=== PATIENT | female | born 1945 | race Caucasian/White ===

== ENCOUNTER 2023-11-12 07:44 | Emergency (ER) | payer MEDICARE, BC, SELFPAY ==
[2023-11-12 07:49] VITALS: BP 135/64
--- NOTE | 2023-11-12 08:19 | ED.GENMED ---
History of Present Illness
General
Chief Complaint: Chest Pain
Source: patient and spouse
Exam Limitations: none
Time Seen by Provider: 11/12/23 08:16
Travel History
Have you had any contact with someone who has COVID-19?: No
Do you have any symptoms of coronavirus? Fever > 100 degrees, chills, cough, shortness of breath, sore throat, loss of taste or smell, muscle aches, or headache?: No
History of Present Illness
History of Present Illness:
78-year-old female relatively sudden onset of left anterior chest pain just below her breast at about 3 AM. Lasted about 4 hours. Currently gone. She noted it was worse when lying down. No shortness of breath although some nausea. No
diaphoresis. No radiation to the arm neck or back. No shearing pain history of similar episodes. She states that she currently is at baseline and symptoms have resolved. She has no history of coronary disease. She does have some history of
vascular disease however
Past History
Past History
ED Past Medical History: Asthma, GERD and HTN
ED Past Surgical History: Other
Social History
Tobacco: Non-smoker
Alcohol: None
Review of Systems
Review of Systems
All Other Systems: Not applicable
Constitutional: Denies fever
Respiratory: Reports no symptoms; Denies cough
ABD/GI: Reports no symptoms
Phy Exam
Physical Exam
Physical Exam:
GENERAL: Alert and oriented in no apparent distress. Patient did note symptoms recurred somewhat with deep breathing on the lung exam
EYE: Orbits normal.
NECK: Supple, no thyroid palpable
ENT: Pharynx without erythema
CARDIAC: Regular rate and rhythm without any obvious murmurs.
LUNGS: Clear breath sounds,normal
ABDOMEN: Soft, without focal tenderness or distention
NEUROLOGICAL: Alert and oriented , grossly non-focal
SKIN: Warm and dry, no rash or lesion, no discoloration, skin intact.
MUSCULOSKELETAL: No edema,no deformity.Good color. Calves are normal. No cord. No erythema. No tenderness.
PSYCH: Normal and appropriate interaction.
Scores
Heart Score for Chest Pain Patients
STEMI patient?: No
History: Slightly or Non-Suspicious
ECG: Normal
Age: >/= 65 years
Risk Factors: 1 or 2 Risk Factors
Troponin: </= Normal Limit
Heart Score for Chest Pain Patients: 3
Heart Score Risk: 2.5% MACE over next 6 weeks
Course
Orders/Labs/Results
Orders:
Orders
11/12/23 07:52
Electrocardiogram (*1) Urgent
Reason for Study: Chest Pain
11/12/23 07:53
EKG- Treatment ONCE
11/12/23 08:33
Cardiac Monitoring- Treatment ONCE
IV Insert/Care/Rem.- Treatment PRN
11/12/23 09:09
Basic Metabolic Panel Urgent
Complete Blood Count/With Diff Urgent
D-Dimer Urgent
Troponin I Urgent
11/12/23 10:00
CT Chest Pe Study Urgent
Comment:
Reason For Exam: Chest pain/pleuritic in nature. Positive dimer
11/12/23 11:39
US Periph Venous LOWER Ext Dima Urgent
Comment:
Reason For Exam: Positive D-dimer. Chest pain.
11/12/23 13:35
Electrocardiogram (*1) Stat
Reason for Study: Other
Other Reason for Exam: chest pain
EKG- Treatment ONCE
11/12/23 14:11
Troponin I Urgent
11/12/23 14:46
Doxycycline [Vibramycin] 100 mg PO NOW STA
Abnormal Lab Results
11/12/23
09:09
WBC 12.9 H 10^3/uL
(4.8-10.8)
RBC 4.18 L 10^6/uL
(4.20-5.40)
Absolute Neuts (auto) 10.6 H 10^3/uL
(1.4-6.5)
Absolute Lymphs (auto) 1.0 L 10^3/uL
(1.2-3.4)
Absolute Monos (auto) 1.0 H 10^3/uL
(0.1-0.6)
Neutrophils % 82.0 H %
(42.2-75.2)
Lymphocytes % 7.9 L %
(20.5-51.1)
D-Dimer 6.38 H ug/mlFEU
(0.00-0.50)
Carbon Dioxide 33 H mmol/L
(22-30)
BUN 20 H mg/dl
(7-17)
Creatinine 0.5 L mg/dL
(0.6-1.0)
Glucose 106 H mg/dl
(70-99)
11/12/23 09:09
11/12/23 09:09
Vital Signs
Initial and Last Documented VS:
Initial Vital Signs
Temp Pulse Resp BP Pulse Ox
98.4 F 65 20 135/64 97
11/12/23 07:49 11/12/23 07:49 11/12/23 07:49 11/12/23 07:49 11/12/23 07:49
Last Documented Vital Signs
Temp Pulse Resp BP Pulse Ox
98.4 F 59 16 147/61 94
11/12/23 07:49 11/12/23 14:30 11/12/23 14:30 11/12/23 14:08 11/12/23 14:30
MDM/Problems Addressed
Differential Diagnosis Includes:
Low suspicion for cardiac etiology. Atypical cardiac like pain. EKG is stable. Will do troponin and repeat testing. Would be slightly more suspicious for pulmonary emboli although although no risk factors. Feel a D-dimer is a reasonable screen.
Would like to reasonably try to avoid a CAT scan as she has had multiple CTs in the past for chronic lung issues. Patient is comfortable with this approach
*Radiology
Radiology exam reviewed: radiology read reviewed (Negative ultrasounds. CT scan show multifocal pneumonia. Seen on previous scans)
*Pulse Oximetry
Patient hypoxic: no
*EKG
Interpreted by ED Provider?: Yes
Interpretation: normal
Comparison EKG: no comparison EKG present
Heart Rate: 57
Rate: bradycardiac
Rhythm: sinus
Vaughn: normal axis
Interval: normal interval
QRS Pattern: normal QRS
Ischemia: no ischemia
*Critical Care Note
Total Time (30-74mins, 75-104mins- exclusive of procedures): Not Applicable
Update Note
Update Note:
Repeat EKG stable. Patient is remained stable. Discussed CT findings with patient's social work nurse. No indication for admission given her nontoxic appearance, good pulse ox. We will start doxycycline and have her follow-up.
ED Attending Note
-
Portions of this chart may have been created with voice recognition software.� Occasional wrong word or��sound alike� substitutions may have occurred due to the inherent limitations of voice recognition software.
Discharge Plan
Departure
Patient Disposition: Home (Routine Discharge)
Date of Disposition: 11/12/23
Time of Disposition: 14:44
Patient with high blood pressure during this ER visit?: Yes
Discharge Problem:
Pleuritic chest pain, Multifocal inflammatory changes lung
Instructions: Chest Pain CBC Follow Up, BLOOD PRESSURE
Prescriptions:
New
doxycycline hyclate 100 mg capsule
100 mg PO BID 10 Days Qty: 20 0RF
No Action
doxycycline hyclate 100 MG capsule
100 mg PO Q12 Qty: 13 0RF
Referrals:
Bo Barillas MD [Family Provider] - Follow up in 2-3 days
Activity Restrictions/Additional Instructions:
Call your social work nurse for close follow-up
Return with increasing chest pain shortness of breath fever or any other concerning symptoms
Interventions
Interventions:
*Risk Screen - Suicide Last Done: 11/12/23 07:49
*General Assessment Last Done: 11/12/23 07:49
*Neglect/Abuse Screening Last Done: 11/12/23 07:49
ED- Cardiac Assessment Last Done: 11/12/23 09:24
Discharge Date and Time
Print Language: [place]
[2023-11-12 08:57] VITALS: BMI 19.1
[2023-11-12 09:11] VITALS: BP 124/51
[2023-11-12 09:25] LABS: % Basophils 0.4 % (0-2); % Eosinophils 1.8 % (0-6); % Immature Granulocytes 0.2 % (0-0.5); % Lymphocytes 7.9 % (20.5-51.1); % Monocytes 7.7 % (1.7-9.3); Absolute Basophils 0.1 10^3/uL (0-0.2); Absolute Eosinophils 0.2 10^3/uL (0-0.7); Absolute Neutrophils 10.6 10^3/uL (1.4-6.5); Hematocrit 37.5 % (37.0-47.0); Hemoglobin 12.6 g/dL (12.0-16.0); Mean Corp Hgb Conc. 33.6 g/dL (33.0-37.0); Mean Corpuscular Hgb 30.1 pg (27.0-31.0); Mean Corpuscular Volume 89.7 fL (81.0-99.0); Nucleated Red Blood Cells % 0 %; Platelet Count 282 10^3/uL (130-400); Red Blood Cell Count 4.18 10^6/uL (4.20-5.40); Red Cell Dist. Width 13.2 % (11.5-14.5); White Blood Cell Count 12.9 10^3/uL (4.8-10.8)
[2023-11-12 09:40] LABS: Blood Urea Nitrogen 20 mg/dl (7-17); Calcium 9.4 mg/dl (8.4-10.2); Carbon Dioxide 33 mmol/L (22-30); Chloride 102 mmol/L (98-107); Estimated Creatinine Clearance 60 ml/min; Glucose 106 mg/dl (70-99); Potassium 4.4 mmol/L (3.5-5.1); Sodium 140 mmol/L (135-145); eGFR > 60.00
[2023-11-12 09:50] LABS: D-Dimer 6.38 ug/mlFEU (0.00-0.50); Troponin I < 0.012 ng/ml
[2023-11-12 10:00] VITALS: BP 135/55
[2023-11-12 14:08] VITALS: BP 147/61
[2023-11-12 14:45] LABS: Troponin I < 0.012 ng/ml
[2023-11-12] MEDS: VIBRAMYCIN 100 MG PO (15:15)
== END 2023-11-12 15:33 | disposition home or self-care (01) ==
LOC: EMR 07:44
PROVIDERS: EMERGENCY PHYSICIAN Emergency Medicine; FAMILY PHYSICIAN Internal Medicine
DX: R07.81 Pleurodynia (principal); J98.4 Other disorders of lung; Z86.79 Personal history of other diseases of the circulatory system
CPT/HCPCS: 99285; 71275; 80048; 84484; 85025; 85379; 93005; 93970; Q9967

== ENCOUNTER 2024-09-26 11:47 | Emergency (ER) | payer MEDICARE, BC, SELFPAY ==
[2024-09-26 11:49] VITALS: BP 141/53; BMI 18.3
--- NOTE | 2024-09-26 12:41 | ED.GENMED ---
History of Present Illness
General
Chief Complaint: Musculo-Skeletal Complaint
Source: patient
Exam Limitations: none
Time Seen by Provider: 09/26/24 12:33
History of Present Illness
History of Present Illness:
79yoF with a history of hypertension presenting with her for evaluation of right foot pain. She woke up with the pain 2 days ago. She denies any trauma or inciting incident. Pain is located at the dorsum of her foot and is worse with
plantar flexion. She noticed that the veins on her foot appeared swollen yesterday and she became concerned that she had a blood clot. This appears improved today. She denies any pain in her calf or paresthesias. She has not taken anything OTC
for her symptoms.
Past History
Past History
ED Past Medical History: Asthma, GERD and HTN
ED Past Surgical History: Other
Social History
Tobacco: Non-smoker
Alcohol: None
Phy Exam
General Physical Exam
General Presentation: well appearing and no apparent distress
General age: appears stated age
General Skin: warm and dry
General Habitus: normal and elderly
ENT Exam
ENT Exam: normocephalic
Pulmonary Exam
Pulmonary Exam: no respiratory distress
Musculoskeletal Exam
Musculoskeletal Exam: other (L foot: Normal to inspection without swelling or wounds. +Tenderness to dorsum of foot. No pitting edema or calf tenderness. ROM of ankle. 2+ PT pulse. Cap refill and sensation intact. )
Skin Exam
Skin Exam: normal color and warm/dry
Psychiatric Exam
Psychiatric Exam: normal mood/affect
Course
Orders/Labs/Results
Orders:
Orders
09/26/24 12:19
Foot, Right 3 View [CR Foot - Right Min 3 Views] Urgent
Comment:
Reason For Exam: pain
09/26/24 12:40
Venous Doppler Lwr Ext Rt [US Periph Venous LOWER Ext RT] Urgent
Comment:
Reason For Exam: R leg pain
Vital Signs
Initial and Last Documented VS:
Initial Vital Signs
Temp Pulse Resp BP Pulse Ox
97.8 F 58 16 141/53 99
09/26/24 11:49 09/26/24 11:49 09/26/24 11:49 09/26/24 11:49 09/26/24 11:49
Last Documented Vital Signs
Temp Pulse Resp BP Pulse Ox
97.8 F 58 16 141/53 99
09/26/24 11:49 09/26/24 11:49 09/26/24 11:49 09/26/24 11:49 09/26/24 11:49
MDM/Problems Addressed
Differential Diagnosis Includes:
79yoF here with atraumatic L foot pain x 2 days. Worried about a blood clot. Foot is normal to inspection. No calf tenderness or pitting edema present. LLE is neurovascularly intact. Differential diagnosis includes: metatarsalgia, sprain, Gardner's
neuroma, stress fracture, doubt DVT
X-rays of foot obtained which are negative for fractures. Venous duplex negative for DVT. Supportive care discussed and advised f/u with podiatry and PCP.
*Critical Care Note
Total Time (30-74mins, 75-104mins- exclusive of procedures): Not Applicable
ED Attending Note
-
Portions of this chart may have been created with voice recognition software.� Occasional wrong word or��sound alike� substitutions may have occurred due to the inherent limitations of voice recognition software.
Discharge Plan
Departure
Patient Disposition: Home (Routine Discharge)
Date of Disposition: 09/26/24
Time of Disposition: 14:13
Patient with high blood pressure during this ER visit?: Yes
Discharge Problem:
Acute pain of right foot
Instructions: Muscle, joint, and bone pain - Discharge instructions
Prescriptions:
No Action
doxycycline hyclate 100 MG capsule
100 mg PO Q12 Qty: 13 0RF
doxycycline hyclate 100 mg capsule
100 mg PO BID 10 Days Qty: 20 0RF
Referrals:
Bo Barillas MD [Family Provider] -
Do Harding DPM [Active] -
Activity Restrictions/Additional Instructions:
Elevate, ice, and compress your foot. Take Tylenol as needed for pain.
Please follow-up with your family doctor and podiatry.
Interventions
Interventions:
*Risk Screen - Suicide Last Done: 09/26/24 11:49
*General Assessment Last Done: 09/26/24 11:49
*Neglect/Abuse Screening Last Done: 09/26/24 13:03
*ED- Fall Risk Assessment Last Done: 09/26/24 13:03
*ED COVID-19 Vaccine History Last Done: 09/26/24 13:03
*Nursing Disposition Last Done: 09/26/24 14:29
ED-Musculoskeletal Assessment Last Done: 09/26/24 13:03
Discharge Date and Time
Discharge Date/Time: 09/26/24 14:30
Print Language: [place] CITIZEN
== END 2024-09-26 14:30 | disposition home or self-care (01) ==
LOC: EMR 11:47
PROVIDERS: EMERGENCY PHYSICIAN Emergency Medicine; FAMILY PHYSICIAN Internal Medicine
DX: M79.671 Pain in right foot (principal); M79.604 Pain in right leg; J45.909 Unspecified asthma, uncomplicated; I10 Essential (primary) hypertension
CPT/HCPCS: 99284; 73630; 93971

== ENCOUNTER 2024-10-27 12:03 | Emergency (ER) | payer MEDICARE, BC, SELFPAY ==
[2024-10-27 12:06] VITALS: BP 124/56
[2024-10-27 12:27] LABS: % Basophils 0.8 % (0-2); % Immature Granulocytes 0.4 % (0-0.5); % Lymphocytes 14.9 % (20.5-51.1); % Monocytes 9.1 % (1.7-9.3); % Neutrophils 70.8 % (42.2-75.2); Absolute Basophils 0.1 10^3/uL (0-0.2); Absolute Eosinophils 0.3 10^3/uL (0-0.7); Absolute Lymphocytes 1.3 10^3/uL (1.2-3.4); Absolute Monocytes 0.8 10^3/uL (0.1-0.6); Absolute Neutrophils 6.1 10^3/uL (1.4-6.5); Hematocrit 42.3 % (37.0-47.0); Hemoglobin 14.1 g/dL (12.0-16.0); Mean Corp Hgb Conc. 33.3 g/dL (33.0-37.0); Mean Corpuscular Hgb 31.2 pg (27.0-31.0); Mean Corpuscular Volume 93.6 fL (81.0-99.0); Mean Platelet Volume 10.5 fL (7.4-10.4); Nucleated Red Blood Cells % 0 %; Platelet Count 253 10^3/uL (130-400); Red Blood Cell Count 4.52 10^6/uL (4.20-5.40); Red Cell Dist. Width 12.9 % (11.5-14.5); White Blood Cell Count 8.6 10^3/uL (4.8-10.8)
[2024-10-27 12:51] LABS: ALT (SGPT) 17 U/L (0-35); AST (SGOT) 22 U/L (14-36); Albumin 4.1 g/dl (3.5-5.0); Alkaline Phosphatase 71 U/L (38-126); Blood Urea Nitrogen 21 mg/dl (7-17); Calcium 9.4 mg/dl (8.4-10.2); Carbon Dioxide 31 mmol/L (22-30); Chloride 106 mmol/L (98-107); Glucose 129 mg/dl (70-99); Potassium 4.2 mmol/L (3.5-5.1); Sodium 143 mmol/L (135-145); Total Bilirubin 0.8 mg/dl (0.2-1.3); Total Protein 7.1 g/dl (6.3-8.2); eGFR > 60.00
[2024-10-27 12:56] LABS: Troponin I < 0.012 ng/ml
--- NOTE | 2024-10-27 14:25 | ED.GENMED ---
History of Present Illness
General
Chief Complaint: Chest Pain
Source: patient
Exam Limitations: none
Time Seen by Provider: 10/27/24 13:58
Nursing documentation reviewed up to this point in time: agreed with
History of Present Illness
History of Present Illness:
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
Denies fever or chills. Denies direct trauma. Denies recent travel or surgery. Denies back pain. Denies leg pain or swelling.
Past History
Past History
ED Past Medical History: Asthma, GERD and HTN
ED Past Surgical History: Other
Social History
Tobacco: Non-smoker
Alcohol: None
Review of Systems
Review of Systems
Allergies reviewed?: Yes
All Other Systems: ROS reviewed and negative except as documented in HPI and ROS
Constitutional: Reports no symptoms; Denies fever
Respiratory: Reports cough; Denies trouble breathing
Cardiac: Reports chest pain
ABD/GI: Reports no symptoms
Musculoskeletal: Reports no symptoms
Skin: Reports no symptoms
Neurological: Reports no symptoms
Phy Exam
Physical Exam
Physical Exam:
Physical Exam
General: no apparent distress, not acutely ill. aebrile
Head: nc/at. eomi
Neck: supple. normal range of motion.
Heart: s1/s2 regular rate and rhythm
Lungs: no acute respiratory distress. clear bilaterally. tenderness to palpation over left anterior chest wall along axillary line without ecchymosis/rash/erythema
Abdomen: normal bowel sounds. not tender.
Neuro: alert and oriented x 3. no focal neurological deficits
Skin: no rash
Psychiatric: well kept. interactive and cooperative
Extremities: no edema. no calf tenderness.
Scores
Heart Score for Chest Pain Patients
STEMI patient?: Not applicable
Course
Orders/Labs/Results
Orders:
Orders
10/27/24 12:04
EKG [Electrocardiogram (*1)] Urgent
Reason for Study: Chest Pain
EKG- Treatment ONCE
10/27/24 12:18
Complete Blood Count/With Diff Urgent
Comprehensive Metabolic Panel Urgent
Troponin I Urgent
10/27/24 14:20
Dexamethasone Sod Phosphate [Decadron] 10 mg IV NOW STA
Ketorolac [Toradol] 15 mg IV NOW STA
10/27/24 14:21
CR Chest - 2 Views Urgent
Comment:
Reason For Exam: cp/sob
10/27/24 15:08
D-Dimer Urgent
10/27/24 17:02
Azithromycin [Zithromax] 500 mg PO NOW STA
Abnormal Lab Results
10/27/24 10/27/24
12:18 15:08
MCH 31.2 H pg
(27.0-31.0)
MPV 10.5 H fL
(7.4-10.4)
Absolute Monos (auto) 0.8 H 10^3/uL
(0.1-0.6)
Lymphocytes % 14.9 L %
(20.5-51.1)
D-Dimer 2.09 H ug/mlFEU
(0.00-0.50)
Carbon Dioxide 31 H mmol/L
(22-30)
BUN 21 H mg/dl
(7-17)
Glucose 129 H mg/dl
(70-99)
10/27/24 12:18
10/27/24 12:18
Vital Signs
Initial and Last Documented VS:
Initial Vital Signs
Temp Pulse Resp BP Pulse Ox
97.6 F 50 18 124/56 100
10/27/24 12:06 10/27/24 12:06 10/27/24 12:06 10/27/24 12:06 10/27/24 12:06
Last Documented Vital Signs
Temp Pulse Resp BP Pulse Ox
97.6 F 61 17 161/73 95
10/27/24 12:06 10/27/24 17:10 10/27/24 17:10 10/27/24 17:10 10/27/24 17:00
MDM/Problems Addressed
MDM/Problems Addressed:
Chest x-ray x-ray report reviewed and discussed with patient. History and exam, along with location of her pneumonia, correlates with patient's presenting left-sided chest pain, with cough and inspiration. As such, despite mildly elevated D-dimer,
which has been higher in the past, no indication for PE study at this time. In addition, patient reports that she has had 'too many CT scans' and prefer to defer any additional imaging studies at this time. Otherwise, patient remains afebrile,
hemodynamically stable, and without any acute distress. I believe it is reasonable to start patient on antibiotics along with short course of prednisone, with recommendation to follow-up with her post acute care nurse practitioner for reevaluation, with consideration
to return to ED with worsening symptoms.
*Critical Care Note
Total Time (30-74mins, 75-104mins- exclusive of procedures): Not Applicable
ED Attending Note
-
Portions of this chart may have been created with voice recognition software.� Occasional wrong word or��sound alike� substitutions may have occurred due to the inherent limitations of voice recognition software.
Discharge Plan
Departure
Patient Disposition: Home (Routine Discharge)
Date of Disposition: 10/27/24
Time of Disposition: 17:04
Patient with high blood pressure during this ER visit?: Yes
Condition: Fair
Discharge Problem:
Pneumonia
Instructions: Pneumonia in adults
Prescriptions:
New
azithromycin [Zithromax] 250 mg tablet
250 mg PO DAILY Qty: 4 0RF
prednisone 50 mg Tablet
50 mg PO DAILY Qty: 2 0RF
No Action
doxycycline hyclate 100 MG capsule
100 mg PO Q12 Qty: 13 0RF
doxycycline hyclate 100 mg capsule
100 mg PO BID 10 Days Qty: 20 0RF
Referrals:
Bo Barillas MD [Family Provider, Internal Medicine]
Activity Restrictions/Additional Instructions:
As discussed, please follow-up with your primary care physician and/or post acute care nurse practitioner for reevaluation. Please consider return to ED with worsening symptoms. Your prescriptions have been sent electronically to [facility] pharmacy in [place].
Interventions
Interventions:
*Risk Screen - Suicide Last Done: 10/27/24 12:06
*General Assessment Last Done: 10/27/24 12:06
*Nursing Disposition Last Done: 10/27/24 17:17
ED- Cardiac Assessment Last Done: 10/27/24 15:20
Discharge Date and Time
Discharge Date/Time: 10/27/24 17:17
Print Language: [place]
[2024-10-27 14:56] VITALS: BP 155/59
[2024-10-27] MEDS: TORADOL 15 MG IV (15:12)
[2024-10-27] MEDS: DECADRON 10 MG IV (15:13)
[2024-10-27 15:29] LABS: D-Dimer 2.09 ug/mlFEU (0.00-0.50)
[2024-10-27 16:07] VITALS: BP 142/58
[2024-10-27] MEDS: ZITHROMAX 500 MG PO (17:05)
[2024-10-27 17:10] VITALS: BP 161/73
== END 2024-10-27 17:17 | disposition home or self-care (01) ==
LOC: EMR 12:03
PROVIDERS: Emergency Medicine; EMERGENCY PHYSICIAN Emergency Medicine; FAMILY PHYSICIAN Internal Medicine
DX: J18.9 Pneumonia, unspecified organism (principal); J44.0 Chronic obstructive pulmonary disease with (acute) lower respiratory infection; A31.9 Mycobacterial infection, unspecified; R05.3 Chronic cough; K21.9 Gastro-esophageal reflux disease without esophagitis; I10 Essential (primary) hypertension; Z88.1 Allergy status to other antibiotic agents; Z88.3 Allergy status to other anti-infective agents; Z88.0 Allergy status to penicillin; Z88.2 Allergy status to sulfonamides; Z88.7 Allergy status to serum and vaccine; Z88.8 Allergy status to other drugs, medicaments and biological substances
CPT/HCPCS: 99284; 96374; 96375; 71046; 80053; 84484; 85025; 85379; 93005